=== PATIENT | male | born 1970 | race African-American/Black ===

== ENCOUNTER → 2020-09-06 11:52 | Outpatient (CLI) | payer OTHER, SELFPAY ==
--- NOTE | 2020-09-06 13:01 | DI.CT.S_ITS ---
PROCEDURE: CT PELVIS W CON INDICATIONS: Malignant neoplasm of penis, unspecified TECHNIQUE: After the administration of oral contrast and intravenous contrast, 5 mm thick sections acquired from the iliac crests to the symphysis. 5 mm thick coronal and sagittal reformats were acquired. For radiation dose reduction, the following was used: automated exposure control, adjustment of mA and/or kV according to patient size. COMPARISON: [facility], CT, CT PELVIS WITH CONTRAST, 08/03/2020, 9:09. FINDINGS: Image quality: Excellent. Peritoneum and bowel: Contrast enhanced bowel loops demonstrate normal wall thickness and caliber. No free fluid or air. Genitourinary: Bladder wall thickness is normal. Nodes and vessels: No iliac, pelvic, or inguinal adenopathy. Iliac vessels demonstrate normal size and enhancement. Bones: No suspicious bony lesions. Miscellaneous: No inguinal hernias. IMPRESSION: No pathologically enlarged adenopathy identified. No specific evidence of metastatic disease. No interval change since 08/03/20. Dictated by: Zachary Flanagan M.D. on 09/06/2020 at 17:10 Approved by: Zachary Flanagan M.D. on 09/06/2020 at 17:14
== END ==
PROVIDERS: Referring Provider Urology; Visit Provider Urology
DX: C60.9 Malignant neoplasm of penis, unspecified (principal)
CPT/HCPCS: 72193; Q9967